=== PATIENT | female | born 1940 | race Caucasian/White ===

== ENCOUNTER → 2017-01-25 | Outpatient (CLI) | payer MEDICARE, BC, OTHER ==
[2017-01-25 13:12] LABS: BLOOD UREA NITROGEN 17 mg/dL (7-18)
[2017-01-25 13:26] LABS: ASPARTATE AMINO TRANSFERASE 18 U/L (15-37)
== END | disposition home or self-care (01) ==
LOC: CFH 11:33
PROVIDERS: ATTEND Internal Medicine
DX: I10 Essential (primary) hypertension (principal); E78.4 Other hyperlipidemia; G47.00 Insomnia, unspecified; K21.9 Gastro-esophageal reflux disease without esophagitis; M79.671 Pain in right foot
CPT/HCPCS: 36415; 80053; 80061; 81001; 84443; 85027